=== PATIENT | female | born 1990 ===

== ENCOUNTER 2016-09-19 12:33 | Emergency (ER) | payer OTHER ==
[2016-09-19 12:39] VITALS: BP 116/71
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
== END 2016-09-19 12:50 | disposition home or self-care (01) ==
LOC: UCEAST 12:33
DX: S09.22XA Traumatic rupture of left ear drum, initial encounter (principal); W16.42XA Fall into unspecified water causing other injury, initial encounter; Y93.16 Activity, rowing, canoeing, kayaking, rafting and tubing; Y92.9 Unspecified place or not applicable; Z88.1 Allergy status to other antibiotic agents; Z88.2 Allergy status to sulfonamides
CPT/HCPCS: 99202; G0463